=== PATIENT | male | born 1970 | race Two or more races ===

== ENCOUNTER 2025-03-13 22:51 | Emergency (ER) | payer OTHER, SELFPAY ==
[2025-03-13 23:06] VITALS: BP 176/90; PULSE 99; RESP 16; TEMP 37.1; O2SAT 96; BMI 23.4
[2025-03-14] VITALS: BP 139/91; PULSE 89; RESP 20; TEMP 37.1; O2SAT 98
--- NOTE | 2025-03-14 01:51 | ED.GENADULT ---
HPI - General Adult General Chief complaint: Skin/Abscess/Foreign Body Stated complaint: bug bite on back Time Seen by Provider: 03/14/25 01:18 Source: patient Limitations: no limitations History of Present Illness ED Provider: Crystal Castro PA-C HPI narrative: 55-year-old man presents with a concern for skin infection over upper back. Patient states someone noticed a swelling over left shoulder blade. The patient states he has been picking at the site, and it has become bothersome. Denies drainage from the site or fever. Patient is not sure if he had an infected hair follicle or if it was a bug bite. Related Data Previous Rx's ?Medication ?Instructions ?Recorded doxycycline hyclate 100 mg capsule 100 mg PO BID #13 caps 03/14/25 Allergies Allergy/AdvReac Type Severity Reaction Status Date / Time aspirin (ASPIRIN) Allergy Unknown HIVES Verified 03/13/25 23:08 Review of Systems Review of Systems: Yes all other systems are reviewed and are negative Constitutional: Constitutional: Denies fatigue and Denies fever(s) Cardiovascular: Cardiovascular: Denies chest pain and Denies dyspnea Respiratory: Respiratory: Denies dyspnea Integumentary/Breasts: Skin/Breast: Reports erythema, Denies rash and Reports sores Endocrine: Endocrine: Denies fatigue [facility] Past Medical History Attestation statement: The following information was validated with the patient. Social History Social History (System 10/15/24 @ 10:51 by Ashley Ford) Unable to assess alcohol history related to: Unknown Use of substances other than those prescribed or required for medical reasons: Unknown Advance Directives: No Do you have a plan to hurt others: No Plan Physical Exam ED Vital Signs: Vital Signs - 24 hr 03/13/25 23:06 03/14/25 00:00 Temperature 98.7 F 98.7 F Pulse Rate 99 89 Respiratory Rate 16 20 Blood Pressure 176/90 H 139/91 H Pulse Oximetry 96 98 Oxygen Delivery Method Room Air Room Air BMI result Body Mass Index 23.4 Const Other: Alert well-appearing Orientation/consciousness: patient oriented x3 Resp Effort & Inspection: normal respiratory effort Cardio Other: Normal peripheral perfusion Back/Spine/Pelvis Other: Abrasion with the overlying erythema noted posterior upper back over the left shoulder blade, no swelling no induration no fluctuance Skin Other: Warm dry no rash Neuro General: patient oriented x3, gait normal, no focal motor deficits and CN's II-XI intact bilaterally Psych Other: Cooperative Medical Decision Making Medical Decision Making MDM Narrative: 55-year-old man presents with a concern for skin infection over upper back. Patient states someone noticed a swelling over left shoulder blade. The patient states he has been picking at the site, and it has become bothersome. Denies drainage from the site or fever. Patient is not sure if he had an infected hair follicle or if it was a bug bite. No known chronic issues History: Per patient I have considered the following differential diagnoses: Cellulitis, purulent cellulitis, insect bite, folliculitis, abscess, infected cyst Plan: Viewed the site with bedside ultrasound, there was no fluid collection, there was mild cellulitic changes we will place on a course of doxy. No indication for imaging or labs Differential Diagnosis Differential Diagnoses: The differential diagnosis associated with the presentation includes See medical decision-making Admission/Observation Consideration of admission/observation: Escalation of care including admission/observation considered Not applicable Discharge Plan Discharge Clinical Impression: Cellulitis Patient Disposition: Home, Self-Care Instructions: Cellulitis (ED) Additional Instructions: You are being treated for cellulitis. See home care instructions. Take the doxycycline as directed. Follow up with primary care as needed Prescriptions: New doxycycline hyclate 100 mg capsule 100 mg PO BID Qty: 13 0RF Interventions: ED Discharge Assessment Last Done: 03/14/25 02:24 Print Language: Hungarian
[2025-03-14 02:24] VITALS: BP 139/91; PULSE 89; RESP 20; TEMP 37.1; O2SAT 98
== END 2025-03-14 02:25 | disposition home or self-care (01) ==
PROVIDERS: Emergency Provider Emergency Medicine
DX: L03.312 Cellulitis of back [any part except buttock and flank] (principal)
CPT/HCPCS: 99283; 99284